=== PATIENT | male | born 1980 | race Caucasian/White ===

== ENCOUNTER 2020-03-16 14:39 | Emergency (ER) | payer BC ==
[~2020-03-16] VITALS: Ht 177.8 cm; Wt 77.6 kg
[~2020-03-16 14:39] MED LIST: CIPROFLOXACIN500 MG PO; FLAGYL500 MG PO; VICO10300 PO
== END 2020-03-16 17:14 | disposition home or self-care (01) ==
LOC: ED 14:39
DX: S22.31XA Fracture of one rib, right side, initial encounter for closed fracture (principal); F17.200 Nicotine dependence, unspecified, uncomplicated; W18.39XA Other fall on same level, initial encounter; Y93.89 Activity, other specified; Y92.89 Other specified places as the place of occurrence of the external cause; Y99.8 Other external cause status

== ENCOUNTER 2022-09-26 15:29 | Emergency (ER) | payer BC ==
[~2022-09-26] VITALS: Ht 175.2 cm; Wt 78.0 kg
[2022-09-26] MEDS ORDERED: CEPHALEXIN500 M1 PO (17:01)
== END 2022-09-26 17:06 | disposition home or self-care (01) ==
LOC: ED 15:29
DX: S01.21XA Laceration without foreign body of nose, initial encounter (principal)

== ENCOUNTER 2024-10-09 18:09 | Emergency (ER) | payer BC ==
[~2024-10-09] VITALS: Ht 175.2 cm; Wt 80.7 kg
[~2024-10-09 18:09] MED LIST changes: +CEPHALEXIN500 M1 PO
[2024-10-09] MEDS ORDERED: ACETAMINOPHEN 325 MG TAB PO ONE (18:55)
== END 2024-10-09 20:45 | disposition home or self-care (01) ==
LOC: ED 18:09
DX: S86.912A Strain of unspecified muscle(s) and tendon(s) at lower leg level, left leg, initial encounter (principal); Z98.890 Other specified postprocedural states; V84.9XXA Unspecified occupant of special agricultural vehicle injured in nontraffic accident, initial encounter; Y93.89 Activity, other specified; Y92.89 Other specified places as the place of occurrence of the external cause; Y99.8 Other external cause status